=== PATIENT | female | born 1980 | race Caucasian/White ===

== ENCOUNTER 2024-12-26 09:01 | Emergency (ER) | payer OTHER, SELFPAY ==
[2024-12-26 09:12] VITALS: BP 132/79; PULSE 102; RESP 16; TEMP 37.8; O2SAT 99
--- NOTE | 2024-12-26 09:14 | ED_ITS ---
HPI - URI/Sore Throat General Chief Complaint: Upper Respiratory Infection Stated Complaint: derick ng Time Seen by Provider: 12/26/24 09:14 Source: patient Mode of arrival: ambulatory Limitations: no limitations History of Present Illness HPI Narrative: 44-year-old female presents with complaint of sore throat, fever, body aches, chills for 3 days. Denies nausea vomiting . All systems reviewed and negative except as noted above. Related Data Home Medications ?Medication ?Instructions ?Recorded ?Confirmed ?Last Taken ?Type amitriptyline 50 mg tablet 50 mg PO DAILY 12/26/24 12/26/24 Unknown History etanercept 50 mg/mL (1 mL) 50 mg subcut WEEKLY 12/26/24 12/26/24 Unknown History subcutaneous pen injector (Enbrel SureClick) folic acid 1 mg tablet 1 mg PO DAILY 12/26/24 12/26/24 Unknown History methotrexate sodium 2.5 mg tablet 2.5 mg PO DAILY 12/26/24 12/26/24 Unknown History metoprolol succinate 25 mg 25 mg PO DAILY 12/26/24 12/26/24 Unknown History tablet,extended release 24 hr Allergies Allergy/AdvReac Type Severity Reaction Status Date / Time phentermine (From [facility]) Allergy Intermediate Rash Verified 12/26/24 09:24 topiramate (From [facility]) Allergy Intermediate Rash Verified 12/26/24 09:24 Review of Systems Review of Systems: CONSTITUTIONAL: Reports fever, chills, or sweats. EYES: Denies visual changes, redness, or discharge. ENT: Denies rhinorrhea, congestion . Reports sore throat. denies otalgia. CARDIOVASCULAR: Denies chest pain, palpitations, or edema. RESPIRATORY: Denies cough or dyspnea. GASTROINTESTINAL: Denies abdominal pain, nausea, vomiting, or diarrhea. GENITOURINARY: Denies dysuria or hematuria. SKIN: Denies rash or itching. MUSCULOSKELETAL: Denies back pain, joint pain, or myalgia. NEUROLOGIC: Denies headache, numbness, or weakness. PSYCHIATRIC: Denies anxiety or depression. All other systems reviewed are negative, except as documented in HPI. PMFSH Comments At time of signature, agree with nursing past medical, surgical, social and family history. There is no relevant family history pertinent to the presenting complaint. Exam Narrative: GENERAL: This is a well-nourished, well-developed patient, in no apparent distress. HEAD: normocephalic, atraumatic. EYES: PERRL. Sclera clear/white. Vision is grossly intact. EARS: External ears normal, auditory canals clear and without drainage, TMs normal without perforation. Hearing grossly intact. NOSE: External nose normal with no obvious nasal discharge, nares without redness, no rhinorrhea. THROAT: Mucous membranes moist, he erythematous, beefy red exudates tonsils 1+ bilaterally. NECK: Neck supple, non-tender without lymphadenopathy, masses or thyromegaly. CARDIOVASCULAR: Regular rate and rhythm without murmurs, gallops, or rubs. RESPIRATORY: Clear to auscultation. Breath sounds equal bilaterally. No wheezes, rales, or rhonchi. SKIN: warm, Dry, intact with no suspicious lesions or rash, good texture and turgor. NEURO: awake, alert, and oriented to person, place and time. There were no obvious focal neurologic abnormalities. EXTREMITIES: No joint tenderness, effusion, or edema noted. Course Course Level of Care: Express Care Visit Vital Signs Vital signs: Vital Signs Temperature 37.8 C H 12/26/24 09:12 Pulse Rate 102 H 12/26/24 09:12 Respiratory Rate 16 12/26/24 09:12 Blood Pressure 132/79 12/26/24 09:12 Pulse Oximetry 99 12/26/24 09:12 Oxygen Delivery Room Air 12/26/24 09:12 Temperature 37.8 C H 12/26/24 09:12 Pulse Rate 102 H 12/26/24 09:12 Respiratory Rate 16 12/26/24 09:12 Blood Pressure 132/79 12/26/24 09:12 Pulse Oximetry 99 12/26/24 09:12 Oxygen Delivery Room Air 12/26/24 09:12 Reviewed MDM - URI/Sore Throat MDM Narrative Medical decision making narrative: rapid strep. will Treat patient with azithromycin due to contraindications with patient's methotrexate and amoxicillin. patient is alert, nontoxic. No difficulty swallowing. Please be advised this is a medical document. It is intended for [id number] communication. It is written in medical language and may contain unfamiliar abbreviations or verbiage. Medical documents are intended to carry relevant information, facts as evident, and the clinical opinion of the practitioner at the time of the encounter. This report may have been done utilizing a voice recognition system. Attempts have been made to correct errors. However, there may be uncorrected grammatical, spelling, and recognition errors present. The file time of this note does not necessarily represent the time of service. Differential Diagnosis Differential diagnosis: Likely upper respiratory infection, viral infection and pharyngitis Discharge Plan Discharge Clinical Impression: Strep throat Patient Disposition: Home, Self-Care Condition: Stable Instructions: Antibiotic Form, Strep Throat (ED) Additional Instructions: Your strep test was positive today. Take antibiotic as prescribed until gone. Change toothbrush after taking antibiotic for 24 hours. Take ibuprofen or Tylenol every 6-8 hours as needed for pain and fever. Drink plenty of water and rest. With your doctor if symptoms are not improving. Patient Language: Moroccan Prescriptions: New azithromycin 250 mg tablet See Rx Instructions .ROUTE .COMPLEX Qty: 6 0RF Rx Instructions: For 250 mg dose pack: take 500 mg today (day 1), then 250 mg for 4 days (days 2-5) No Action amitriptyline 50 mg tablet 50 mg PO DAILY Enbrel SureClick 50 mg/mL (1 mL) pen injector 50 mg SUBCUT WEEKLY folic acid 1 mg tablet 1 mg PO DAILY methotrexate sodium 2.5 mg tablet 2.5 mg PO DAILY metoprolol succinate 25 mg tablet extended release 24 hr 25 mg PO DAILY Follow-up/Referrals: PHYSICIAN NOT ON STAFF,NONSTAFF [Primary Care Provider] - Stand Alone Forms: Work/School Release IP Time of Disposition: 09:30
[2024-12-26 09:37] LABS: EDSTREPNEGPOS1 Positive (Negative)
== END 2024-12-26 09:33 | disposition home or self-care (01) ==
PROVIDERS: Emergency Provider Nurse Practitioner Family
DX: J02.0 Streptococcal pharyngitis (principal); I10 Essential (primary) hypertension; M19.90 Unspecified osteoarthritis, unspecified site; N80.9 Endometriosis, unspecified; Z86.16 Personal history of COVID-19
CPT/HCPCS: 87880; 99203; G0463